=== PATIENT | male | born 1985 | race Hispanic/Latino ===

== ENCOUNTER 2017-04-27 01:08 | Emergency (ER) | payer OTHER ==
[~2017-04-27] VITALS: Ht 180.3 cm; Wt 127.3 kg
[~2017-04-27 01:08] MED LIST: AMLO5TAB2; PRE20 PO; RANI150C4 PO; VALA100026 PO
[2017-04-27] MEDS ORDERED: Famotidine 20 mg/50 mL NS Premix IV ONE (01:14)
[2017-04-27] MEDS ORDERED: MethylprednisoLONE Sodium Succinate 62.5 mg/mL 2 mL Inj ONE (01:14)
[2017-04-27 01:18] VITALS: BP 186/118; PULSE 96; RESP 26; O2SAT 100
[2017-04-27] MEDS ORDERED: Famotidine Inj 20 MG in IV Premix 1 EACH IV ONE (01:20)
[2017-04-27] MEDS ORDERED: 0.9% Sodium Chloride 1,000 ML IV ONE (01:20)
[2017-04-27] MEDS ORDERED: MethylprednisoLONE Sodium Succinate 62.5 mg/mL 2 mL Inj IVPUSH ONE (01:20)
--- NOTE | 2017-04-27 01:30 | ED.REPORT ---
HPI-Allergic Reaction Date of Service Apr 27, 2017 ED Provider: Eugene Montana MD A 31 year old male with a history of hypertension presents to the ED with significant angioedema that began 1 hour prior to arrival. Associated symptoms itchiness and difficulty speaking. He denies any similar previous allergic reactions or any family history of allergies. Patient is able to speak in full sentences and denies any swelling in the back of his throat at this time. He took Benadryl with no relief. Patient denies any history of cardiac disease and previously took Lisinopril. List of allergies currently includes crab, hydrocodone, and penicillin. Nursing Notes Stated Complaint: FACIAL SWELLING, ALLERGIC REACTION Chief Complaint: Allergic Reaction Nursing Notes Reviewed: Yes Allergies: Coded Allergies: crab (Verified Allergy, Intermediate, Hives, 04/27/17) "bloated" Penicillins (Verified Allergy, Unknown, 04/27/17) hydrocodone (Verified Allergy, Unknown, 04/27/17) Scheduled Prednisone (PredniSONE) 20 Mg Tablet 20 MG PO DAILY Ranitidine (Ranitidine) 150 Mg Capsule 150 MG PO DAILY Valacyclovir (Valacyclovir) 1,000 Mg Tablet 1,000 MG PO BID Miscellaneous Medications Amlodipine (Amlodipine) 5 Mg Tablet General Time Seen by MD: 01:18 Chief Complaint Allergic reaction, Swelling Hx Obtained From: Patient Arrived By: Walk-in Onset Occurred: 1 - 4 hours ago Symptom Duration: Since onset Progression Since Onset: Gradually worsening Associated with: Reports: Face swollen, Lips swollen, Tongue swollen Pertinent Negative: Pt denies other symptoms Recent Healthcare: No recent doctor visit, No recent hospitalization Past Medical History Past Medical History Hypertension History of GI bleed in June 2014 with admission, EGD 2 revealing severe gastritis History of a gastric bezoar Duodenum obstruction causing liver and gallbladder infection, - care occurred at [facility] Past Surgical History ERCP Gallbladder stent Smoking History Never Smoker Social History Alcohol Use: "Social" Drug Use: Denies drug use Other Social History: Smokeless tobacco, Good social support, Lives with parents, Local resident 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 Physical Exam Initial Vital Signs Vital Signs (First) Date Time Temp Pulse Resp B/P Pulse Ox O2 Delivery O2 Flow Rate FiO2 04/27/17 01:18 36.8 96 26 186/118 100 Room Air Initial VS: Reviewed, Vital signs abnormal Extremities: Vascular intact, Neuro intact, No swelling, No tenderness Psychiatric: Mood/affect normal, Behavior normal, Normal thought content General/Constitutional: Awake, Alert, No acute distress Respiratory / Chest: Atraumatic, Breath sounds NL, Breath sounds = bilat, No respiratory distress Cardiovascular: Regular rhythm, Heart sounds NL Skin: Atraumatic, Warm, Dry Head / Eyes: Atraumatic, Normocephalic, PERRL Eyelids: Positive: Angioedema present ENT: Atraumatic Mouth: Positive: Angioedema present..., Lip swelling present, Tongue abnormal ( Swelling) Pharynx / Tonsils / Uvula: Positive: Uvula erythematous Interpretation & Diagnostics Lab Results Interpretation Result Diagram: 04/27/17 0120 04/27/17 0120 Test 04/27/17 01:20 04/27/17 04:30 04/27/17 05:17 White Blood Count 9.8th/mm3 (3.8-10.1) Red Blood Count 6.64mil/mm3 (4.40-5.80) Hemoglobin 17.2g/dL (13.8-17.2) Hematocrit 53.1% (41.0-50.0) Mean Corpuscular Volume 80.0fL (81-100) Mean Corpuscular Hemoglobin 25.9pg (27.0-35.0) Mean Corpuscular Hemoglobin Concent 32.4% (32.0-37.0) Red Cell Distribution Width 18.2% (12.3-15.4) Platelet Count 255bil/L (150-400) Sodium Level 144mEq/L (134-144) Potassium Level 3.6mEq/L (3.5-5.2) Chloride Level 101mEq/L (97-108) Carbon Dioxide Level 27mmol/L (18-29) Blood Urea Nitrogen 15mg/dL (6-20) Creatinine 0.84mg/dL (0.76-1.27) Estimat Glomerular Filtration Rate 113mL/min (>59) Glucose Level 102mg/dL (60-99) Calcium Level 9.4mg/dL (8.5-10.1) Total Bilirubin 1.0mg/dL (0.0-1.2) Aspartate Amino Transf (AST/SGOT) 21U/L (0-50) Alanine Aminotransferase (ALT/SGPT) 24U/L (0-44) Alkaline Phosphatase 84U/L (25-150) Total Protein 7.9g/dL (6.4-8.4) Albumin 4.6g/dL (3.4-5.0) Hold Urine Received (Received) Troponin T 0.036ug/L (0.0-0.011) Lab values outside NL range: no clinical significance. Lab Results Interpretation: Initial troponin negative. Repeat troponin 0.036. ECG Interpretation ECG Interpretation: Sinus tachycardia Rate 102 Atrial premature complex probable left atrial enlargement Time: 01:23 Interpreted by: ED physician ECG Interpretation: Sinus tachycardia Rate 101 Time: 01:25 Interpreted by: ED physician ECG Interpretation: Sinus Rhythm Rate 89 LBBB Time: 02:36 Interpreted by: ED physician Re-Eval/Medical Decision Med Decision/Clinical Course 31-year-old male who presents with angioedema. The onset as bends fairly rapid over the last 1-2 hours. Upon arrival an IV was started and he was given IV Benadryl, IV Solu-Medrol, and fluids. Epinephrine 0.3 mg IM was ordered from the anaphylaxis order set. However, he was inadvertently given epinephrine 1 mg IV. He developed V. tach lasting around 1 minute with crushing substernal chest pain. This resolved spontaneously without loss of vital signs. His overstimulation symptoms relieved in 10-15 minutes. EKG did not show any substantial change. Initial troponin was negative, repeat troponin at 2 hours was 0.036. Case was discussed with Dr. Barcenas who felt that the patient did not need further evaluation for this, and that the effects of the exposure would not be hidden or prolonged. The patient's angioedema symptoms resolved almost completely. He will be discharged home with continued antihistamines. He will return here if there is worsening symptoms. Otherwise he will follow- up with his primary doctor for further evaluation for angioedema/allergies. Re-Evaluation/Progress #1: Time of Eval: 01:24 Re-Evaluation/Progress Note: Epi is administered. Pt is currently experiencing dyspnea following the IV epi. Substernal chest pain and nausea is present. V tach is currently present ([id number]) Re-Evaluation/Progress #2: Time of Eval: 02:24 Patient Status: Condition improved Re-Evaluation/Progress Note: Vitals stable; breathing improved Re-Evaluation/Progress #3: Time of Eval: 05:00 Patient Status: Condition improved Re-Evaluation/Progress Note: Facial swelling improved. Still hypertensive. Patient is informed of his results and the the intended treatment plan. Re-Evaluation/Progress #4: Time of Eval: 06:11 Patient Status: Condition improved Re-Evaluation/Progress Note: Swelling has improved. HR = 86 Consultation : Referral / Consult Name: Sixto Barcenas MD Consulted With: Cardiology Call Returned at: 06:14 Chair Car Driver: Agrees with eval, Agrees with plan Counseled Regarding: Diagnosis, Lab results, Need for follow-up, When/why to return to ED Discharge & Departure Primary Impression: Angioedema Encounter type: initial encounter Qualified Code: T78.3XXA - Angioneurotic edema, initial encounter Additional Impressions: Epinephrine overdose Encounter type: initial encounter Injury intent: accidental or unintentional Qualified Code: T44.5X1A - Poisoning by predominantly beta- adrenoreceptor agonists, accidental (unintentional), initial encounter Ventricular tachycardia Elevated troponin Disposition: Home Discharge Condition All VS Reviewed: Yes Condition: Stable Patient Instructions: Angioedema (ED), Epinephrine (By injection) Additional Instructions: The swelling was due to a type of allergic reaction called angioedema. Take your antihistamines on a regular basis. Talk to your primary provider about further evaluation to look at the cause of the angioedema. Return immediately if you have recurrent swelling. You received an excessive dose of epinephrine in the IV, which caused your heart to race and be under considerable stress. There is no EKG evidence of heart damage. This should not cause long-term problems. Your case was discussed with the stain applicator who recommended that you did not need to stay in the hospital. However, return here [facility] if you have recurrent chest pain or shortness of breath. Call me at [phone] between the hours of 9 PM and 6 AM for the next couple nights if you have any questions or concerns. Referrals: [facility] (PCP) Crit Care Except Billable Proc Time Spent: 30-74 minutes Services Performed: Patient management by me, Time spent at bedside, Reviewing test results, Reviewing imaging, Discussing patient care, Documentation in record, Time with fam/surrogate Critical Care Notes: Rapidly progressive angioedema symptoms with ventricular tachycardia as result of epinephrine administration. Scribe Attestation Portions of this note were transcribed by Devante Zimmerman. I, Dr. Montana personally performed the history, physical exam and medical decision-making; I reviewed and confirmed the accuracy of the information in the transcribed note. Signed by: Sosa Cooper, 04/27/17 0638 Eugene Montana MD Apr 27, 2017 01:30 DEVANTE ZIMMERMAN Apr 27, 2017 01:38
[2017-04-27 01:34] LABS: Mean Corpuscular Hemoglobin 25.9 pg (27.0-35.0)
[2017-04-27 06:13] VITALS: BP 162/103; PULSE 89; RESP 20; O2SAT 97
[2017-04-27 06:50] VITALS: BP 162/108; PULSE 89; RESP 20; O2SAT 97
== END 2017-04-27 06:52 | disposition home or self-care (01) ==
LOC: SED 01:08
DX: T44.5X1A Poisoning by predominantly beta-adrenoreceptor agonists, accidental (unintentional), initial encounter (principal); T78.3XXA Angioneurotic edema, initial encounter; I47.2 Ventricular tachycardia; R79.89 Other specified abnormal findings of blood chemistry; X58.XXXA Exposure to other specified factors, initial encounter; Y93.9 Activity, unspecified; Y99.8 Other external cause status; Y92.9 Unspecified place or not applicable; F17.228 Nicotine dependence, chewing tobacco, with other nicotine-induced disorders; I10 Essential (primary) hypertension; Z88.0 Allergy status to penicillin; Z88.5 Allergy status to narcotic agent; Z79.52 Long term (current) use of systemic steroids
CPT/HCPCS: 36415; 80053; 84484; 85027; 93005; 96361; 96372; 96374; 96375; 99291; J1200; J2930; J3490; J7030

== ENCOUNTER 2017-04-30 10:11 | Emergency (ER) | payer OTHER ==
[2017-04-30 10:14] VITALS: BP 203/131; PULSE 90; RESP 18; O2SAT 97
--- NOTE | 2017-04-30 10:38 | ED.REPORT ---
HPI-General Illness Date of Service Apr 30, 2017 ED Provider: Neo Roe MD Pt is a 32 year old male with a history of HTN and anxiety who presents to the ED to follow up after receiving an inappropriate dose of IV epinephrine for an allergic reaction on 04/27/16. He presented with angioedema and was given 1 mg IV epinephrine instead of 0.3 mg IM epinephrine. After the dose, he experienced severe squeezing chest pain and dyspnea which lasted a few minutes and then resolved. He was discharged in good condition and told to follow-up soon. He reports feeling fatigued for the past few days with some mild intermittent left lateral chest pain. He is feeling relatively back to normal at this time. Nursing Notes Stated Complaint: FOLLOW UP Chief Complaint: General Complaint Nursing Notes Reviewed: Yes Allergies: Coded Allergies: crab (Verified Allergy, Intermediate, Hives, 04/27/17) "bloated" Penicillins (Verified Allergy, Unknown, 04/27/17) hydrocodone (Verified Allergy, Unknown, 04/27/17) Scheduled Amlodipine (Amlodipine) 5 Mg Tablet 5 MG PO DAILY Prednisone (PredniSONE) 20 Mg Tablet 20 MG PO DAILY Ranitidine (Ranitidine) 150 Mg Capsule 150 MG PO DAILY Valacyclovir (Valacyclovir) 1,000 Mg Tablet 1,000 MG PO BID Miscellaneous Medications Amlodipine (Amlodipine) 5 Mg Tablet General Time Seen by MD: 10:32 Chief Complaint Other (Follow up after inappropriate IV epinephrine dose) Hx Obtained From: Patient Arrived By: Walk-in Sudden in Onset?: No Onset Occurred: 1 day ago Symptom Duration: Duration unknown Severity: Current: No pain currently Severity: Maximum: No pain Recent Healthcare: Recent doctor visit Similar Sx Previous: No Past Medical History Past Medical History Hypertension History of GI bleed in June 2014 with admission, EGD 2 revealing severe gastritis History of a gastric bezoar Duodenum obstruction causing liver and gallbladder infection, - care occurred at [facility] Anxiety Denies: Diabetes mellitus Past Surgical History ERCP Gallbladder stent Smoking History Never Smoker Social History Alcohol Use: "Social" Drug Use: Denies drug use Other Social History: Smokeless tobacco, Good social support, Lives with parents, Local resident 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 Physical Exam Vital Signs Vital Signs Date Time Temp Pulse Resp B/P Pulse Ox O2 Delivery O2 Flow Rate FiO2 04/30/17 12:41 167/103 04/30/17 11:51 36.6 81 16 171/104 99 Room Air 04/30/17 11:10 193/120 04/30/17 10:14 90 18 203/131 97 Room Air Initial VS: Reviewed Head / Eyes: Atraumatic, Normocephalic ENT: Mucous membranes moist, Conjunctiva normal, No scleral icterus Neck: Supple, Full range of motion Respiratory: Breath sounds normal, Clear to auscultation, No respiratory distress Cardiovascular: Regular rate & rhythm, Heart sounds normal Abdomen / GI: Soft, Non-tender Extremities: Vascular intact, Neuro intact Skin: Warm, Dry, No cyanosis Neurologic: Alert, Oriented, Nonfocal Psychiatric: Mood/affect normal, Behavior normal General/Constitutional: Awake, Alert, No acute distress, Well appearing, Cooperative, Not toxic appearing Appearance / Presentation: Positive: Obese Interpretation & Diagnostics Lab Results Interpretation Test 04/30/17 11:44 Troponin T 0.010ug/L (0.0-0.011) ECG Interpretation ECG Interpretation: Sinus rhythm with a rate of 81 Probable left atrial enlargement Anterior infarct, old Nonspecitific T abnormalities, lateral leads When compared to 11/08/16, no significant change. Time: 10:47 Interpreted by: ED physician Re-Eval/Medical Decision Source of Hx: Old records Time of Eval: 12:40 Patient Status: Condition improved Re-Evaluation/Progress Note: Pt rechecked. Pt was provided a prescription for a refill on his blood pressure medication. Informed pt of plan for discharge. Pt understands and agrees with plan for discharge. F/U instructions and RTER warnings given. All questions addressed. Counseled Regarding: Diagnosis, Lab results, Need for follow-up, When/why to return to ED Discharge & Departure Primary Impression: Epinephrine overdose Encounter type: subsequent encounter Injury intent: accidental or unintentional Qualified Code: T44.5X1D - Poisoning by predominantly beta- adrenoreceptor agonists, accidental (unintentional), subsequent encounter Disposition: Home Discharge Condition All VS Reviewed: Yes Condition: Stable Additional Instructions: Your heart appears to have returned to normal. Your EKG is as it was back in October. Your heart enzyme test is normal as well. I do not believe any further follow-up for this problem as necessary. I recommended follow-up with your primary care provider to discuss your blood pressure management. Referrals: [facility] (PCP) Sosa Attestation Portions of this note were transcribed by Randy Sanabria and Sarah Fountain. I, Dr. Roe personally performed the history, physical exam and medical decision-making; I reviewed and confirmed the accuracy of the information in the transcribed note. Signed by: Randy Sanabria and Sosa Cazares, 04/30/17 and 13:50. copies to: [facility] Neo Roe MD Apr 30, 2017 10:37 Sarah Hodges Apr 30, 2017 10:50 RANDY SANABRIA Apr 30, 2017 12:36
[2017-04-30 11:10] VITALS: BP 193/120
[2017-04-30 11:51] VITALS: BP 171/104; PULSE 81; RESP 16; O2SAT 99
[2017-04-30 12:41] VITALS: BP 167/103
[2017-04-30] MEDS ORDERED: AMLO5TAB2 PO (12:42)
== END 2017-04-30 12:41 | disposition home or self-care (01) ==
LOC: SED 10:11
DX: T44.5X Poisoning by, adverse effect of and underdosing of predominantly beta-adrenoreceptor agonists (principal); X58.XXXA Exposure to other specified factors, initial encounter; Y93.89 Activity, other specified; Y92.9 Unspecified place or not applicable; Y99.8 Other external cause status; I10 Essential (primary) hypertension; Z88.0 Allergy status to penicillin; Z88.5 Allergy status to narcotic agent; Z91.018 Allergy to other foods

== ENCOUNTER 2017-08-04 20:12 | Emergency (ER) | payer OTHER ==
[~2017-08-04 20:12] MED LIST changes: +AMLO5TAB2 PO
== END 2017-08-04 20:22 | disposition left against medical advice (07) ==
LOC: SED 20:12
DX: K82.9 Disease of gallbladder, unspecified (principal); Z53.21 Procedure and treatment not carried out due to patient leaving prior to being seen by health care provider

== ENCOUNTER 2017-08-06 16:46 | Emergency (ER) | payer OTHER ==
[2017-08-06 16:48] VITALS: BP 162/89; PULSE 99; RESP 24; O2SAT 99
[2017-08-06 17:37] LABS: BASOPHILS % (AUTO) 0.5 % (0-3); EOSINOPHILS % (AUTO) 8.1 % (0-5); MONOCYTES % (AUTO) 6.5 % (4-12); Mean Corpuscular Hemoglobin 27.7 pg (27.0-35.0); Mean Corpuscular Volume 82.3 fL (81-100); NEUTROPHILS % (AUTO) 58.7 % (40-74); Platelet Count 240 bil/L (150-400)
[2017-08-06 20:52] LABS: APPEARANCE,URINE CLEAR (CLEAR,HAZY); COLOR,URINE YELLOW (YELLOW); OCCULT BLOOD,URINE NEGATIVE (NEGATIVE)
[2017-08-06 20:53] LABS: UROBILINOGEN,URINE 2 mg/dL (NORMAL)
--- NOTE | 2017-08-06 21:34 | ED.REPORT ---
HPI-Abd Pain M Under 40 Date of Service Aug 06, 2017 ED Provider: Tarun Santiago MD History of Present Illness: OCC The patient is a 32 year old male with a history of cholecystitis, HTN, and gastritis presenting to the ED complaining of RUQ abdominal pain onset today around 1600. He describes the pain as a "pressure" that has been constant and radiates into his right flank. Secondary to the abdominal pain, the patient admits to SOB. He denies nausea, vomiting, chills, or fever. The patient also claims to have had a similar episode yesterday but it resolved itself while he was in the ED. The patient reports that he last ate at 11:00 this morning and drinking water gives him discomfort. He says that he was on blood pressure medications, but has recently ran out. Nursing Notes Stated Complaint: GALLBLADDER Chief Complaint: Male Abdominal Pain Nursing Notes Reviewed: Yes ([employer] not reconciled) Allergies: Coded Allergies: crab (Verified Allergy, Intermediate, Hives, 08/06/17) "bloated" Penicillins (Verified Allergy, Unknown, 08/06/17) hydrocodone (Verified Allergy, Unknown, 08/06/17) Scheduled Amlodipine (Amlodipine) 5 Mg Tablet 5 MG PO DAILY Amlodipine (Amlodipine) 5 Mg Tablet 5 MG PO DAILY Prednisone (PredniSONE) 20 Mg Tablet 20 MG PO DAILY Ranitidine (Ranitidine) 150 Mg Capsule 150 MG PO DAILY Valacyclovir (Valacyclovir) 1,000 Mg Tablet 1,000 MG PO BID Scheduled PRN oxyCODONE-Acetaminophen 5-325 mg (oxyCODONE-Acetaminophen 5-325 mg) 1 Each Tablet 1-2 TAB PO Q6H PRN PRN For Pain Miscellaneous Medications Amlodipine (Amlodipine) 5 Mg Tablet General Time Seen by MD: 21:31 Chief Complaint Abdominal pain (RUQ) Hx Obtained From: Patient Arrived By: Walk-in Sudden in Onset?: Yes Onset Occurred: Just prior to arrival Symptom Duration: Since onset Progression since Onset: Constant Location: : RUQ Quality: Pressure Radiation: : Flank right Associated with: Reports: Shortness of breath, Denies: Chills, Diarrhea, Fever, Nausea, Vomiting Pertinent Negative: Pt denies other symptoms Pertinent Negative: Exacerbated by nothing (drinking water) Recent Healthcare: Recent doctor visit Similar Sx Previous: Yes Past Medical History Past Medical History Hypertension History of GI bleed in June 2014 with admission, EGD 2 revealing severe gastritis History of a gastric bezoar Duodenum obstruction causing liver and gallbladder infection, - care occurred at [facility] Past Surgical History ERCP Gallbladder stent, sphincterotomy @ in Jul 2016 Smoking History Never Smoker Social History Alcohol Use: "Social" Drug Use: Denies drug use Other Social History: Smokeless tobacco, Good social support, Lives with parents, Local resident 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 Physical Exam Initial Vital Signs Vital Signs (First) Date Time Temp Pulse Resp B/P Pulse Ox O2 Delivery O2 Flow Rate FiO2 08/06/17 16:48 36.7 99 24 162/89 99 Room Air Initial VS: Reviewed, Vital signs normal Head / Eyes: Atraumatic, Normocephalic, PERRL ENT: Mucous membranes moist, Conjunctiva normal, No scleral icterus Neck: Supple, Non-tender, Full range of motion Lymphatic: No lymphadenopathy Extremities: Vascular intact, Neuro intact, No swelling, No tenderness Skin: Warm, Dry, No cyanosis Neurologic: Alert, Oriented, Nonfocal General/Constitutional: Awake, Alert, No acute distress, Well appearing Respiratory / Chest: Breath sounds NL, Breath sounds = bilat, No respiratory distress, No rales, No rhonchi, No wheezing, No stridor Cardiovascular: Heart rate NL, Regular rhythm, Heart sounds NL, Peripheral circulation NL Abdomen: No guarding, No rebound Tenderness/Guarding/Rebound: Positive: Tender RUQ... (Moderate), Negative: Samano's sign positive Obese Back: Atraumatic Interpretation & Diagnostics US Gallbladder CONCLUSION: Gallbladder containing sludge and gallstones. Nonspecific gallbladder wall thickening, possibly due to partial contraction. This can also be seen with cholecystitis, hepatic/cardiac dysfunction or hypoproteinemia. Dilate common bile duct, without an obstructing lesion seen. Fatty infiltration of the liver. This report was transmitted to the emergency room at 08/06/2017 - 11:55:39 PM PDT. Lab Results Interpretation Result Diagram: 08/06/17 1728 08/06/17 1728 Test 08/06/17 17:28 08/06/17 20:27 08/06/17 20:28 White Blood Count 9.3th/mm3 (3.8-10.1) Red Blood Count 6.32mil/mm3 (4.40-5.80) Hemoglobin 17.5g/dL (13.8-17.2) Hematocrit 52.0% (41.0-50.0) Mean Corpuscular Volume 82.3fL (81-100) Mean Corpuscular Hemoglobin 27.7pg (27.0-35.0) Mean Corpuscular Hemoglobin Concent 33.7% (32.0-37.0) Red Cell Distribution Width 14.3% (12.3-15.4) Platelet Count 240bil/L (150-400) Neutrophils (%) (Auto) 58.7% (40-74) Lymphocytes (%) (Auto) 26.0% (14-46) Monocytes (%) (Auto) 6.5% (4-12) Eosinophils (%) (Auto) 8.1% (0-5) Basophils (%) (Auto) 0.5% (0-3) Sodium Level 142mEq/L (134-144) Potassium Level 4.1mEq/L (3.5-5.2) Chloride Level 102mEq/L (97-108) Carbon Dioxide Level 21mmol/L (18-29) Blood Urea Nitrogen 14mg/dL (6-20) Creatinine 0.82mg/dL (0.76-1.27) Estimat Glomerular Filtration Rate 116mL/min (>59) Glucose Level 102mg/dL (60-99) Calcium Level 9.2mg/dL (8.5-10.1) Magnesium Level 2.0mg/dL (1.6-2.6) Total Bilirubin 1.2mg/dL (0.0-1.2) Aspartate Amino Transf (AST/SGOT) 39U/L (0-50) Alanine Aminotransferase (ALT/SGPT) 34U/L (0-44) Alkaline Phosphatase 84U/L (25-150) Total Protein 8.1g/dL (6.4-8.4) Albumin 4.2g/dL (3.4-5.0) Lipase 24U/L (13-60) Hold Tong Top Tube Received (Received) Hold Urine Received (Received) Urine Color Yellow (YELLOW) Urine Appearance Clear (CLEAR,HAZY) Urine pH 7.0 (5.0-8.0) Urine Specific [place] 1.015 (1.003-1.035) Urine Protein Negativemg/dL (NEG,TRACE) Urine Glucose (UA) Negativemg/dL (NEGATIVE) Urine Ketones Negativemg/dL (NEGATIVE) Urine Occult Blood Negative (NEGATIVE) Urine Nitrite Negative (NEGATIVE) Urine Bilirubin Negative (NEGATIVE) Urine Urobilinogen 2mg/dL (NORMAL) Urine Leukocyte Esterase Negative (NEGATIVE) Urine RBC 0-2/hpf (0-2) Urine WBC 0-5/hpf (0-5) Urine Epithelial Cells Occasional/hpf (NONE-MOD) Urine Crystals Amorphous urates (NONE Urine Bacteria None/hpf (NONE-FEW) Urine Hyaline Casts None/lpf (NONE) Urine Granular Casts None seen (NONE SEEN) Urine Waxy Casts None seen (NONE SEEN) Urine Red Blood Cell Casts None seen (NONE SEEN) Urine White Blood Cell Casts None seen (NONE SEEN) Urine Mucus None seen (None Seen) Urine Trichomonas None seen (NONE SEEN) Urine Yeast None (NONE SEEN) Urinalysis Comment None Urine Culture Reflexed Not indicated Lab Results Interpretation: CBC mild hemoconcentration CMP normal, lipase normal Re-Eval/Medical Decision Med Decision/Clinical Course This is a pleasant 32-year-old male who was admitted to [facility] a year ago with acute cholecystitis, complicated by some sort duodenitis, and choledocholithiasis that led to transfer for ERCP and biliary stenting and what sounds like sphincterotomy. She done well since then, but never followed up with her surgeon. And over the past few days has had episodic increasingly severe right upper quadrant pain, today had a severe bout of right upper quadrant pain radiating to the back. To the emergency department today, he asked she come in yesterday with a mild about then resolved she left without being seen. Today it started to ease off and is doing better. He has had no fever, no additional complaints. Exam he has mild tenderness in the right upper quadrant, without guarding or rebound. He does not have a Samano's. Blood work is normal. Ultrasound reveals cholelithiasis, but not hard findings of cholecystitis. The patient meanwhile significantly improved. I overall's clinical presentation suggestive of an episode of biliary colic. Given this, get a history did discuss the case with him, and they are comfortable with him following up as an outpatient which I think is reasonable. I reviewed these options (admission and surgical consult, versus discharge and outpatient follow- up, and the patient does prefer outpatient follow-up which I think is entirely appropriate. Return precautions reviewed. Patient is also hypertensive, and reports being out of his amlodipine, so I have written for a refill. Source of Hx: Old records Re-Evaluation/Progress : Time of Eval: 00:45 Patient Status: Condition improved Re-Evaluation/Progress Note: Informed pt of US results and discussed plan for discharge. Pt understands and agrees with plan. Consultation : Referral / Consult Name: Barak Keating MD Consulted With: Surgeon Call Returned at: 00:07 Note: Reccommends discharge and follow up as an outpatient. Differential Diagnosis: Positive: Acute abdominal pain, Cholelithiasis, Negative: Contusion abdominal wall, Gun shot wound abdomen, Peptic ulcer disease, Peritonitis, Pyelonephritis, Trauma, abdominal Counseled Regarding: Diagnosis, Lab results, Need for follow-up, When/why to return to ED Patient Discharge & Departure Primary Impression: Biliary colic Additional Impression: HTN (hypertension) Hypertension type: unspecified secondary hypertension Qualified Code: I15.9 - Secondary hypertension, unspecified Disposition: Home Discharge Condition All VS Reviewed: Yes Condition: Improved Additional Instructions: 1. Your symptoms do appear to be secondary to your gallbladder, as her gallbladder does have stones. However we did not find signs of an infected gallbladder that requires emergent surgery at this time. 2. We do recommend that she follow-up with the surgeon for elective gallbladder removal. Call for an appointment with Dr. Keating or one of his partners. 3. If the pain reoccurs, take an ibuprofen 400mg up to three times a day for pain. 4. If needed for more severe pain take oxycodone/APAP 5/325 1-2 tabs up to every 6 hours. NOTE: Medication contains narcotic and causes drowsiness, no driving for at least 4-6 hours after taking. 5. If her pain worsens, if you have new or worsening or uncontrolled symptoms, or if you develop a fever-return directly to the emergency department for reevaluation. 6. Your blood pressure was high today in the ED. I have written a refill of your amlodipine blood pressure medicine, please fill in resume this medicine. You do need follow-up with a primary care physician for recheck of your Blood pressure. If you need a PCP, you can follow up with Dr. Love. Referrals: Barak Keating MD, Rico V MD Scribe Attestation Portions of this note were transcribed by Lisa Caldwell and Rome Viera. I, Dr. Santiago personally performed the history, physical exam and medical decision -making; I reviewed and confirmed the accuracy of the information in the transcribed note. Signed by: Sosa Thompson, 08/06/2017 copies to: Barak Keating MD; Mikael Love MD, Matthew F MD Aug 06, 2017 21:33 Aug 06, 2017 21:48 LISA CALDWELL Aug 06, 2017 22:06
[2017-08-06] MEDS ORDERED: HYDROmorphone 0.5 mg/0.5 mL iSecure Syringe IVPUSH PRN (21:35)
[2017-08-06] MEDS ORDERED: Ondansetron 2 mg/mL 2 mL Inj IVPUSH ONE (21:35)
[2017-08-06 23:23] VITALS: BP 158/79; PULSE 92; RESP 18; O2SAT 99
[2017-08-07] MEDS ORDERED: _HYDROcodone/APAP 5-325 mg Tablet PO PRN (00:20)
[2017-08-07] MEDS ORDERED: OXYC1TAB24 PO (00:25)
[2017-08-07] MEDS ORDERED: _oxyCODONE/APAP 5-325 mg Tablet PO PRN (00:25)
[2017-08-07 01:09] VITALS: BP 170/110; PULSE 90; O2SAT 98
[2017-08-07] MEDS ORDERED: AMLO5TAB2 PO (01:09)
--- NOTE | 2017-08-08 08:24 | DRSVH ---
CORRECTED PROCEDURE NAME AND ACCESSION/PLACER NUMBER ON 08-08-17 PROCEDURE: US ABDOMEN LTD INDICATIONS: ro alma COMPARISON: [facility], MR, MR ABD WO CON, 08/11/2016, 16:56. [facility], US , ABDOMEN LTD, 08/11/2016, 13:30. FINDINGS: Limited right upper quadrant ultrasound demonstrates hepatic steatosis with mild focal fat ty sparing. Gallbladder stones and sludge present. Gallbladder wall prominent. No intrahepatic no karl dilatation. Extrahepatic bile duct upper limits of normal measuring 9 mm.. IMPRESSION: 1. Cholelithiasis and gallbladder sludge with gallbladder wall prominence measuring up to 3.4 mm. E amy developing cholecystitis cannot be excluded. 2. Prominence of the extrahepatic bile left. Correlate with LFTs. 3. Increased hepatic echogenicity noted likely related to fatty infiltration of the liver but other sources of hepatocellular disease cannot be excluded. Recommend clinical correlation. Note: These findings are concordant with the preliminary interpretation. Dictated by: Omid MONET Interpreted: Katie Robbins MD on 08/07/2017 at 9:49 Approved by: Katie Robbins M.D. on 08/07/2017 at 20:23
== END 2017-08-07 01:18 | disposition home or self-care (01) ==
LOC: SED 16:46
DX: K80.50 Calculus of bile duct without cholangitis or cholecystitis without obstruction (principal); I15.9 Secondary hypertension, unspecified; R06.02 Shortness of breath; I10 Essential (primary) hypertension; F41.9 Anxiety disorder, unspecified; Z87.19 Personal history of other diseases of the digestive system; Z98.890 Other specified postprocedural states; Z88.0 Allergy status to penicillin; Z88.5 Allergy status to narcotic agent; Z91.013 Allergy to seafood
CPT/HCPCS: 36415; 76705; 80053; 81000; 83690; 83735; 85025; 96374; 96375; 99285; J1170; J2405